=== PATIENT | male | born 1980 | race Caucasian/White ===

== ENCOUNTER 2019-01-15 11:26 | Inpatient (IN) | payer OTHER ==
[~2019-01-15] VITALS: Ht 177.8 cm; Wt 71.2 kg
[2019-01-15 11:28] VITALS: BP 135/87
[2019-01-15 11:52] LABS: BILIRUBIN NEGATIVE (NEGATIVE); BLOOD 1+ (NEGATIVE); CLARITY SL CLOUDY (CLEAR); COLOR YELLOW (YELLOW); GLUCOSE NEGATIVE (NEGATIVE); KETONE NEGATIVE (NEGATIVE); LEUKO ESTERASE NEGATIVE (NEGATIVE); NITRITE NEGATIVE (NEGATIVE); UROBILINOGEN 0.2 E.U./dl (0.2-1.0)
[2019-01-15 12:00] LABS: BACTERIA TRACE; MUCOUS TRACE
[2019-01-15 12:02] LABS: BASO # 0.1 10*3/uL (0.0-0.1); BASO % 0.3 % (0.0-1.0); EOS # 0.1 10*3/uL (0.0-0.4); EOS % 0.7 % (1.0-4.0); HEMATOCRIT 43.7 % (42.0-52.0); HEMOGLOBIN 14.3 g/dl (14.0-18.0); LYMPH # 1.8 10*3/uL (1.3-4.4); LYMPH % 9.9 % (27.0-41.0); MEAN CELL VOLUME 94.6 fl (80.0-94.0); MEAN CORPUSCULAR HGB CONC 32.7 g/dl (33.0-37.0); MEAN PLATELET VOLUME 8.9 fl (9.6-12.3); MONO % 5.4 % (3.0-9.0); NEUT # 15.1 10*3/uL (2.3-7.9); NEUT % 83.4 % (47.0-73.0); PLATELET COUNT AUTOMATED 326 10*3/uL (130-400); RED BLOOD COUNT 4.62 10*6/uL (4.50-5.90); RED CELL DISTRI WIDTH 13.7 % (0-14.5); WHITE BLOOD COUNT 18.1 10*3/uL (4.8-10.8)
[2019-01-15 12:16] LABS: ALBUMIN 3.7 gm/dl (3.1-4.5); ALKALINE PHOSPHATASE 108 U/L (45-117); BUN 11 mg/dl (7-24); CHLORIDE 104 mmol/L (98-107); CREATININE 1.17 mg/dL (0.70-1.30); LIPASE 317 U/L (73-393); SGOT/AST 16 IU/L (3-35); SGPT/ALT 20 U/L (12-78); SODIUM 136 mmol/L (136-145); TOTAL PROTEIN 7.3 gm/dL (6.4-8.2)
[2019-01-15 13:37] LABS: ACT PARTIAL THROMBO TIME 30.7 SECONDS (20.0-32.1)
[2019-01-15 13:43] VITALS: BP 110/72
[2019-01-15 15:34] VITALS: BP 113/80
[2019-01-15 16:20] VITALS: BP 127/96
--- NOTE | 2019-01-15 16:20 | NUR ---
A 38, admitted to , under the services of OPAL Lopez DO with a diagnosis of APPENDICITIS. Chief complaint is SHARP RIGHT LOWER SIDE NONRADIATING. Patient arrived via stretcher from ER. Monitor applied. Initial assessment completed. Vital signs taken and recorded. OPAL LOPEZ DO notified of admission to the unit. Orders received. See assessment for past medical history, medications and allergies. Patient and/or family oriented to unit. [facility] visitation policy reviewed. Clothing/patient valuable form completed. MARIA LUISA PHILLIPS
--- NOTE | 2019-01-15 17:46 | NUR ---
ENRIQUEZ CATHETER PLACED PER DR GOULD REQUEST. AWAITING RETURN CALL.
--- NOTE | 2019-01-15 18:26 | NUR ---
CLEAR LIQUID TONIGHT - NPO AFTER MIDNOGHT UNTIL SEEN BY DR GOULD
[2019-01-15 20:00] VITALS: BP 135/86
[2019-01-16] VITALS: BP 135/87
[2019-01-16 06:22] LABS: BASO # 0.1 10*3/uL (0.0-0.1); BASO % 0.5 % (0.0-1.0); EOS # 0.3 10*3/uL (0.0-0.4); EOS % 2.4 % (1.0-4.0); HEMATOCRIT 40.9 % (42.0-52.0); HEMOGLOBIN 13.5 g/dl (14.0-18.0); LYMPH # 2.1 10*3/uL (1.3-4.4); LYMPH % 19.8 % (27.0-41.0); MEAN CELL VOLUME 95.1 fl (80.0-94.0); MEAN CORPUSCULAR HGB 31.4 pg (27.0-31.0); MEAN PLATELET VOLUME 9.3 fl (9.6-12.3); MONO # 0.9 10*3/uL (0.1-1.0); NEUT # 7.4 10*3/uL (2.3-7.9); PLATELET COUNT AUTOMATED 291 10*3/uL (130-400); RED CELL DISTRI WIDTH 13.9 % (0-14.5); WHITE BLOOD COUNT 10.7 10*3/uL (4.8-10.8)
[2019-01-16 06:40] LABS: ALBUMIN 3.2 gm/dl (3.1-4.5); BUN 6 mg/dl (7-24); CHLORIDE 107 mmol/L (98-107); CREATININE 1.05 mg/dL (0.70-1.30); FREE T4 0.92 ng/dl (0.76-1.46); PHOSPHOROUS 3.5 mg/dL (2.5-4.9); POTASSIUM 4.4 mmol/L (3.5-5.1); SGOT/AST 14 IU/L (3-35); SGPT/ALT 20 U/L (12-78); SODIUM 139 mmol/L (136-145); TOTAL PROTEIN 6.5 gm/dL (6.4-8.2)
[2019-01-16 06:44] LABS: ALKALINE PHOSPHATASE 93 U/L (45-117)
--- NOTE | 2019-01-16 08:15 | NUR ---
PT RESTING IN BED. C/O RLQ PAIN, RATES PAIN 7 ON PAIN SCALE 0-10. MEDICATED WITH MORPHINE IV PER PRN ORDER, SEE EMAR. CALL LIGHT IN REACH. SEE SHIFT ASSESSMENT.
--- NOTE | 2019-01-16 09:15 | NUR ---
PT AMBUJLATORY IN ROOM. STATES MEDICATION HELPED. NO NEW C/O AT THIS TIME. CALL LIGHT IN REACH.
--- NOTE | 2019-01-16 09:42 | NUR ---
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 REFORESTATION WORKER reached out to [facility] Dept, there was no answer. REFORESTATION WORKER will attempt to reach back out to the water dept at a later time. -RIN Cantu
--- NOTE | 2019-01-16 09:57 | NUR ---
CALLED DR. GOULD PHONE LEFT MESSAGE REGARDING WHEN HE IS GOING TO SEE PT FOR SURGERY.
--- NOTE | 2019-01-16 10:12 | NUR ---
PT WAS UP TO BATHROOM AND BATHED OFF. RESTING IN BED. TEDS APPLIED. NO C/O AT THIS TIME. CALL LIGHT IN REACH.
--- NOTE | 2019-01-16 11:00 | NUR ---
CALLED DR. SANDERS MADE AWARE DR. GOULD WAS ON THE FLOOR AND STATES HE DON'T NEED SURGERY. MADE A REGULAR DIET.
[2019-01-16 12:00] VITALS: BP 120/80
--- NOTE | 2019-01-16 12:32 | NUR ---
Transfill Technician in to talk to patient. Patient states lives at HOME with SON. There are FEW steps in the home. Physician: NONE AT THIS TIME [facility]acy: [facility] Home health services: NONE Patient's level of ADLs: INDEPENDENT Patient has working utilities: WATER CURRENTLY OFF DME: NONE Follow-up physician's appointment after d/c: WILL FIND ONE AND FOLLOW UP AFTER DISCHARGE Does patient want to access PORTAL?: NO Discharge plan PT LIVES AT HOME WITH HIS SON. STATES HE IS INDEPENDENT IN HIS CARE. STATES WATER IS CURRENLY SHUT OFF AT HIS HOME, BILINGUAL SOCIAL WORKER NOTIFIED. HE STATES PREVIOUS TENNATE LEFT WITH A LARGE BILL. HE STATES HIS BROTHER OWNS HOUSE AND HE HAS BEEN STAYING THERE TO HELP FIX IT UP FOR HIS BROTHER. WILL CONTINUE THO FOLLOW. PLANS TO RETURN HOME WITH NO NEEDS. WILL HAVE A RIDE HOME. CAM SOTELO
[2019-01-16 16:00] VITALS: BP 121/65
--- NOTE | 2019-01-16 16:25 | NUR ---
CALLED DR. SANDERS REGARDING PT WANTING ENRIQUEZ OUT. HE STATED CALL DR. GOULD.
--- NOTE | 2019-01-16 16:28 | NUR ---
DR. GOULD CALLED OK TO DISCONTINUE ENRIQUEZ PER HIM.
--- NOTE | 2019-01-16 16:30 | NUR ---
PT RESTING IN BED. ENRIQUEZ DISCONTINUED, PT TOLERATED. CALL LIGHT IN REACH. SEE SHIFT ASSESSMENT.
--- NOTE | 2019-01-16 19:38 | NUR ---
DR. ROBLES CALLED FOR PT REQUESTING SMOKING PATCH. HE WILL ORDER IT.
--- NOTE | 2019-01-16 19:50 | NUR ---
PT AMBULATORY TO BATHROOM AND BACK TO BED. APPLIED SMOKING PATCH PER PT REQUEST. SEE EMAR. TOLERATING IVF WITH NO PROBLEM. CALL LIGHT IN REACH.
[2019-01-16 20:00] VITALS: BP 120/65
--- NOTE | 2019-01-16 21:30 | NUR ---
PT TOLERATING ROUTINE IV ANTIBIOTIC AT THIS TIME. CALL LIGHT IN REACH. NO C/O AT THIS TIME.
--- NOTE | 2019-01-16 23:34 | NUR ---
PT ASLEEP IN BED, EASILY AROUSABLE. PT STATES HE IS HAVING PAIN IN ABDOMEN, BUT DENIES NEED FOR PAIN MEDICATION AT THIS TIME. RN EDUCATED PATIENT ON PRN MEDS AND CALL LIGHT USE. NO OTHER COMPLAINTS/NEEDS VOICED. WILL MONITOR. CALL LIGHT IN REACH.
[2019-01-17] VITALS: BP 123/79
[2019-01-17 06:43] LABS: BASO # 0.1 10*3/uL (0.0-0.1); BASO % 0.8 % (0.0-1.0); EOS # 0.6 10*3/uL (0.0-0.4); EOS % 7.8 % (1.0-4.0); HEMOGLOBIN 13.7 g/dl (14.0-18.0); LYMPH # 1.9 10*3/uL (1.3-4.4); LYMPH % 25.6 % (27.0-41.0); MEAN CELL VOLUME 96.1 fl (80.0-94.0); MEAN CORPUSCULAR HGB 31.4 pg (27.0-31.0); MEAN CORPUSCULAR HGB CONC 32.6 g/dl (33.0-37.0); MEAN PLATELET VOLUME 9.2 fl (9.6-12.3); MONO # 0.7 10*3/uL (0.1-1.0); NEUT % 55.7 % (47.0-73.0); PLATELET COUNT AUTOMATED 309 10*3/uL (130-400); RED BLOOD COUNT 4.37 10*6/uL (4.50-5.90); RED CELL DISTRI WIDTH 13.8 % (0-14.5); WHITE BLOOD COUNT 7.2 10*3/uL (4.8-10.8)
[2019-01-17 07:06] LABS: BUN 11 mg/dl (7-24); CHLORIDE 106 mmol/L (98-107); CREATININE 1.07 mg/dL (0.70-1.30); POTASSIUM 4.4 mmol/L (3.5-5.1); SODIUM 137 mmol/L (136-145)
--- NOTE | 2019-01-17 07:40 | NUR ---
PT RESTING IN BED. C/O RLQ PAIN, RATES PAIN 5 ON PAIN SCALE 0-10. REFUSED MEDICATION AT THIS TIME. IV INFUSING WITH NO PROBLEM. CALL LIGHT IN REACH. SEE SHIFT ASSESSMENT.
[2019-01-17 08:00] VITALS: BP 114/79
--- NOTE | 2019-01-17 08:48 | NUR ---
BATTERY SERVICE TECHNICIAN reached out to [facility] Water Dept. Water Dept stated that they do not service the address and to try [facility] [employer]. BATTERY SERVICE TECHNICIAN reached out to [employer]. They do not service the address either. BATTERY SERVICE TECHNICIAN contacted Water Dept again, Farhana looked up the address and there is no such address shown on [employer] site. BATTERY SERVICE TECHNICIAN looked up on the [employer] site address listed in patients demographics. There nothing listed. There are only 3 address under the same last night within city. BATTERY SERVICE TECHNICIAN will speak with the patient. -RIN Cantu
[2019-01-17] MEDS ORDERED: CIPRO500 MG PO (11:02)
[2019-01-17] MEDS ORDERED: FLAGYL500 MG PO (11:02)
--- NOTE | 2019-01-17 11:18 | NUR ---
Discharge instructions reviewed with patient/family. Patient receptive and verbalizes understanding. Follow-up care arranged. Written instructions given to patient/family. HEPLOCK REMOVED 2X2 APPLIED. AMBULATORY OFF THE FLOOR FOR DISCHARGE. MICHELLE SCALES
== END 2019-01-17 11:16 | disposition home or self-care (01) | DRG 720 ==
LOC: ED 11:26 → 5E 15:14 → EDHOLD 15:14 → 5E 16:09
PROVIDERS: Emergency Medicine; Family Medicine; Hospitalist; ADMIT Emergency Medicine
DX: A41.9 Sepsis, unspecified organism (principal); R65.20 Severe sepsis without septic shock; K35.30 Acute appendicitis with localized peritonitis, without perforation or gangrene; F12.90 Cannabis use, unspecified, uncomplicated; R31.9 Hematuria, unspecified; D53.9 Nutritional anemia, unspecified; F17.210 Nicotine dependence, cigarettes, uncomplicated; K59.09 Other constipation; R73.9 Hyperglycemia, unspecified; Z71.6 Tobacco abuse counseling; Z91.040 Latex allergy status; Z82.49 Family history of ischemic heart disease and other diseases of the circulatory system